=== PATIENT | male | born 1935 | race Caucasian/White ===

== ENCOUNTER 2016-09-27 03:16 | Emergency (ER) | payer MEDICARE, OTHER ==
[2016-09-27] MEDS ORDERED: XYLOCAINE 2% Uro-Jet TOP ONE (03:20)
--- NOTE | 2016-09-27 03:34 | ERPHSYRPT ---
- History of Present Illness Time Seen by Provider: 09/27/16 03:18 Source: patient Physician History: CC: urinary retention Hx: 81 y/o patient with hx of prostatism. He is unable to urinate tonite. Feels pressure and urgency. No fever, chills, vomiting. He is scheduled to see Dr Trotter this week in the office. Allergies/Adverse Reactions: Sulfa (Sulfonamide Antibiotics) Allergy (Mild, Verified 09/27/16 03:30) Itching adhesive tape Allergy (Verified 09/27/16 03:30) Home Medications: Furosemide [Lasix] 60 mg PO DAILY 03/11/14 [History] Potassium Chloride 20 Meq [Klor-Con 20 MEQ] 20 meq PO BID 03/11/14 [History] Amlodipine Besylate/Benazepril [Amlodipine-Benazepril 10-40 mg] 1 each PO DAILY 03/11/16 [History] Furosemide 40 mg [Lasix 40 MG] 60 mg PO DAILY 03/11/16 [History] Hydralazine HCl 10 mg PO BID 03/11/16 [History] Metoprolol Tartrate 50 mg [Lopressor 50 MG] 50 mg PO BID 03/11/16 [History ] Hx Tetanus, Diphtheria Vaccination/Date Given: Yes (unknown) Hx Influenza Vaccination/Date Given: No Hx Pneumococcal Vaccination/Date Given: No - Past Medical History Pertinent Past Medical History: Yes Neurological History: No Pertinent History ENT History: No Pertinent History Cardiac History: Hypertension Respiratory History: No Pertinent History Endocrine Medical History: No Pertinent History Musculoskeletal History: No Pertinent History GI Medical History: No Pertinent History History: Other Psycho-Social History: Anxiety Male Reproductive Disorders: Prostate Problems - Past Surgical History Past Surgical History: Yes Neuro Surgical History: No Pertinent History Cardiac: No Pertinent History Respiratory: No Pertinent History Gastrointestinal: Hernia Repair Genitourinary: No Pertinent History Musculoskeletal: No Pertinent History Male Surgical History: No Pertinent History Other Surgical History: steel removed from eye, left nipple gland removed - Social History Smoking Status: Former smoker Exposure to second hand smoke: No Drug Use: none Patient Lives Alone: No - Review of Systems Constitutional: No Fever, No Chills Abdominal/Gastrointestinal: No Nausea, No Vomiting Genitourinary Symptoms: Urinary Retention, No Hematuria Musculoskeletal: No Back Pain Skin: No Rash - Nursing Vital Signs Nursing Vital Signs: Initial Vital Signs Temperature 97.9 F Temperature Source Oral Pulse Rate 62 Respiratory Rate 16 Blood Pressure [Right Arm] 137/76 Pain Intensity 0 - Physical Exam General Appearance: alert Ears, Nose, Throat Exam: moist mucous membranes Respiratory Exam: normal breath sounds Cardiovascular Exam: regular rate/rhythm Gastrointestinal/Abdomen Exam: soft, No tenderness, No distention, No mass, No guarding Male Genital Exam: normal genitalia Extremity Exam: normal inspection, normal range of motion Neurologic Exam: alert, oriented x 3, cooperative, sensation nml, motor deficits Skin Exam: warm, dry, No rash Procedures - Additional Procedures Progress: 16 Fr mcclellan catheter placed using urojet lidocaine. Good return of urine. - Course Nursing assessment & vital signs reviewed: Yes Ordered Tests: Active Orders 24 hr Category Date Time Status Catheter-[place] Mcclellan STAT Care 09/27/16 03:19 Active BMP Stat Lab 09/27/16 03:37 Completed CBC W DIFF Stat Lab 09/27/16 03:37 Completed CULTURE,URINE Stat Lab 09/27/16 03:37 Received UA W/ MICROSCOPIC Stat Lab 09/27/16 03:37 Completed Medication Summary Discontinued Medications Generic Name Dose Route Start Last Admin Trade Name Freq PRN Reason Stop Dose Admin Lidocaine HCl 200 mg 09/27/16 03:20 09/27/16 03:36 Xylocaine 2% Uro-Jet TOP 09/27/16 03:21 200 mg STAT ONE Administration Lab/Rad Data: Laboratory Result [facility] 09/27/16 03:37 09/27/16 03:37 Laboratory Results 09/27/16 09/27/16 09/27/16 Range/Units 03:37 03:37 03:37 WBC 6.5 (4.0-10.5) K/mm3 RBC 5.35 (4.1-5.6) M/mm3 Hgb 15.9 (12.5-18.0) gm/dl Hct 47.8 (42-50) % MCV 89.3 (78-100) fl MCH 29.7 (26-32) pg MCHC 33.3 (32-36) g/dl RDW 14.8 H (11.5-14.0) % Plt Count 138 L (150-450) K/mm3 MPV 10.8 H (6-9.5) fl Gran % 72.2 H (36.0-66.0) % Lymphocytes % 15.7 L (24.0-44.0) % Monocytes % 10.5 (0.0-12.0) % Eosinophils % 1.4 (0.00-5.0) % Basophils % 0.2 (0.0-0.4) % Basophils # 0.01 (0-0.4) Sodium 145 (136-145) mEq/L Potassium 3.3 L (3.5-5.1) mEq/L Chloride 107 (98-107) mEq/L Carbon Dioxide 25.9 (21-32) mEq/L Anion Gap 14.9 (5-15) MEQ/L BUN 6 L (9-20) mg/dL Creatinine 0.84 (0.55-1.30) mg/dl Estimated GFR > 60 ML/MIN Glucose 121 H (70-110) MG/DL Calcium 9.2 (8.5-10.1) mg/dL Ur Collection Type CATH Urine Color YELLOW (YELLOW) Urine Appearance CLEAR (CLEAR) Urine pH 8.5 (5-6) Ur Specific [place] 1.015 (1.005-1.025) Urine Protein NEGATIVE (Negative) Urine Glucose (UA) NEGATIVE (NEGATIVE) mg/dL Urine Ketones NEGATIVE (NEGATIVE) Urine Nitrite NEGATIVE (NEGATIVE) Urine Bilirubin NEGATIVE (NEGATIVE) Urine Urobilinogen 0.2 (0-1) mg/dL Urine WBC (Auto) NEGATIVE (NEGATIVE) Urine RBC (Auto) TRACE-INTACT (0-5) Ramírez/ul Urine Microscopic RBC 0-2 (0-2) /HPF Urine Bacteria RARE (NEGATIVE) /HPF Specimen Received [id number] - Progress Progress Note: 09/27/16 04:23 650ml urine output. Will release to follow up with Dr Trotter. - Departure Time of Disposition: 04:23 Departure Disposition: Home Clinical Impression: Urinary retention Condition: Stable Critical Care Time: No Referrals: TIP JESUS [Primary Care Provider] - ANGÉLICA TROTTER [COURTESY STAFF] - Instructions: Urinary Retention in Men, Care for Your Mcclellan Catheter -- Male Additional Instructions: See Dr Trotter this week as scheduled. Wear catheter until you see Dr Trotter. Return for fever or problems.
[2016-09-27 03:35] VITALS: O2SAT 97
[2016-09-27 03:40] LABS: BASOPHIL % 0.2 % (0.0-0.4); Eosinophil % 1.4 % (0.00-5.0); Granulocytes % 72.2 % (36.0-66.0); Lymphocytes % 15.7 % (24.0-44.0); Mean Cell Volume 89.3 fl (78-100); Mean Corpuscular Hemoglobin 29.7 pg (26-32); Mean Platelet Volume 10.8 fl (6-9.5); Monocytes % 10.5 % (0.0-12.0); Platelet Count 138 K/mm3 (150-450); Red Blood Count 5.35 M/mm3 (4.1-5.6); Red Cell Distribution Width 14.8 % (11.5-14.0); White Blood Count 6.5 K/mm3 (4.0-10.5)
[2016-09-27 03:52] LABS: Collection Type CATH
[2016-09-27 03:53] LABS: Bacteria RARE /HPF (NEGATIVE); COMPLETE URINE MICROSCOPIC? YES; Ph 8.5 (5-6)
[2016-09-27 04:20] LABS: ANION GAP 14.9 MEQ/L (5-15); BLOOD UREA NITROGEN 6 mg/dL (9-20); CHLORIDE 107 mEq/L (98-107); Carbon Dioxide 25.9 mEq/L (21-32); Glucose 121 MG/DL (70-110); Potassium 3.3 mEq/L (3.5-5.1); SODIUM 145 mEq/L (136-145)
[2016-09-27 04:43] VITALS: BP 138/72; PULSE 69
== END 2016-09-27 04:43 | disposition home or self-care (01) ==
LOC: ED 03:16
DX: R33.9 Retention of urine, unspecified (principal); I10 Essential (primary) hypertension
CPT/HCPCS: 36415; 51702; 80048; 81000; 85025; 87086; 99284

== ENCOUNTER 2017-01-10 00:54 | Emergency (ER) | payer MEDICARE, OTHER ==
[2017-01-10] MEDS ORDERED: XYLOCAINE 2% Uro-Jet ONE (01:00)
--- NOTE | 2017-01-10 01:28 | ERPHSYRPT ---
- History of Present Illness Source: patient Exam Limitations: clinical condition Patient Subjective Stated Complaint: pt states he has been having trouble urinating today and has a lot of pain. Triage Nursing Assessment: pt awake and alert, answers questions approp. pt restless in bed. holding lower abd. respitations nonlabored with lungs cta. pt ambulatory with steady gait noted. distention noted to pelvic area and pt reports increased pain with palpation. +2 edema noted to bilat lower ext. Physician History: "Patient with progressive urinary retention yesterday into this morning with significant now lower abdominal/suprapubic pressure still unable to urinate. Patient appears history of same circumstances twice before necessitating placement of Crockett catheters. Patient has had urologic consultation in the past. No fever or chills. No hematuria. No recent suprapubic or genitourinary trauma. Timing/Duration: today, yesterday Activites at Onset: none Quality: fullness, pressure Pain Radiation: none Severity of Pain-Max: severe Severity of Pain-Current: none (AFTER CROCKETT) Modifying Factors: Improves With: urinating Associated Symptoms: other Sexual intercourse history: non-contributory Allergies/Adverse Reactions: Sulfa (Sulfonamide Antibiotics) Allergy (Mild, Verified 01/10/17 01:06) Itching adhesive tape Allergy (Verified 01/10/17 01:06) Home Medications: Furosemide [Lasix] 60 mg PO DAILY 03/11/14 [History] Potassium Chloride 20 Meq [Klor-Con 20 MEQ] 20 meq PO BID 03/11/14 [History] Amlodipine Besylate/Benazepril [Amlodipine-Benazepril 10-40 mg] 1 each PO DAILY 03/11/16 [History] Furosemide 40 mg [Lasix 40 MG] 60 mg PO DAILY 03/11/16 [History] Hydralazine HCl 10 mg PO BID 03/11/16 [History] Metoprolol Tartrate 50 mg [Lopressor 50 MG] 50 mg PO BID 03/11/16 [History ] Hx Tetanus, Diphtheria Vaccination/Date Given: Yes (unknown) Hx Influenza Vaccination/Date Given: No Hx Pneumococcal Vaccination/Date Given: No Immunizations Up to Date: Yes - Past Medical History Pertinent Past Medical History: Yes Neurological History: No Pertinent History ENT History: No Pertinent History Cardiac History: Hypertension Respiratory History: No Pertinent History Endocrine Medical History: No Pertinent History Musculoskeletal History: No Pertinent History GI Medical History: No Pertinent History History: Other Psycho-Social History: Anxiety Male Reproductive Disorders: Prostate Problems - Past Surgical History Past Surgical History: Yes Neuro Surgical History: No Pertinent History Cardiac: No Pertinent History Respiratory: No Pertinent History Gastrointestinal: Hernia Repair Genitourinary: No Pertinent History Musculoskeletal: No Pertinent History Male Surgical History: No Pertinent History Other Surgical History: steel removed from eye, left nipple gland removed - Social History Smoking Status: Former smoker Exposure to second hand smoke: No Drug Use: none Patient Lives Alone: No - Review of Systems Constitutional: No Symptoms Eyes: No Symptoms Ears, Nose, & Throat: No Symptoms Respiratory: No Cough, No Dyspnea Cardiac: No Chest Pain, No Edema, No Syncope Abdominal/Gastrointestinal: No Abdominal Pain, No Nausea, No Vomiting, No Diarrhea Genitourinary Symptoms: Other ( NOTED HPI) Musculoskeletal: No Symptoms Skin: No Symptoms Neurological: No Symptoms - Nursing Vital Signs Nursing Vital Signs: Initial Vital Signs Temperature 97.4 F 01/10/17 00:57 Pulse Rate 74 01/10/17 00:57 Respiratory Rate 22 01/10/17 00:57 Blood Pressure 177/102 01/10/17 00:57 O2 Sat by Pulse Oximetry 96 01/10/17 00:57 Pain Scale Pain Intensity 0 - Physical Exam General Appearance: moderate distress, obese Eye Exam: PERRL/EOMI Ears, Nose, Throat Exam: normal ENT inspection Neck Exam: normal inspection Respiratory Exam: normal breath sounds, chest tenderness Cardiovascular Exam: regular rate/rhythm, normal heart sounds, normal peripheral pulses, capillary refill <2 sec Gastrointestinal/Abdomen Exam: soft, other (SUPRAPUBIC TENDERNESS PRE-Crockett CATHETER PLACEMENT) Rectal Exam: deferred Male Genital Exam: normal genitalia Back Exam: normal inspection, normal range of motion Extremity Exam: normal inspection, normal range of motion, pelvis stable, swelling (MILD,CHRONIC PER PT.), No amputations, No calf tenderness, No deformities Neurologic Exam: alert, oriented x 3, cooperative, communications designer II-XII nml as tested Skin Exam: normal color, warm, dry, No rash Lymphatic Exam: No adenopathy SpO2 Interpretation: normal SpO2: 96 Oxygen Delivery: Room Air - Course Nursing assessment & vital signs reviewed: Yes Ordered Tests: Active Orders 24 hr Category Date Time Status Catheter-[place] Crockett STAT Care 01/10/17 01:09 Active CBC W DIFF Stat Lab 01/10/17 02:01 Completed CMP Stat Lab 01/10/17 02:01 Completed UA W/ MICROSCOPIC Stat Lab 01/10/17 02:09 Completed Medication Summary Discontinued Medications Generic Name Dose Route Start Last Admin Trade Name Jeremias PRN Reason Stop Dose Admin Cephalexin HCl 500 mg 01/10/17 02:57 01/10/17 03:02 Keflex 500 Mg PO 01/10/17 02:58 500 mg STAT ONE Administration Cephalexin HCl Confirm 01/10/17 03:01 Keflex 500 Mg Administered 01/10/17 03:02 Dose 500 mg .ROUTE .STK-MED ONE Lidocaine HCl Confirm 01/10/17 01:00 Xylocaine 2% Uro-Jet Administered 01/10/17 01:01 Dose 200 mg .ROUTE .STK-MED ONE Lab/Rad Data: Laboratory Result Diagrams 01/10/17 02:01 01/10/17 02:01 Laboratory Results 01/10/17 01/10/17 01/10/17 Range/Units 02:09 02:01 02:01 WBC 8.4 (4.0-10.5) K/mm3 RBC 4.72 (4.1-5.6) M/mm3 Hgb 14.2 (12.5-18.0) gm/dl Hct 43.7 (42-50) % MCV 92.6 (78-100) fl MCH 30.1 (26-32) pg MCHC 32.5 (32-36) g/dl RDW 14.1 H (11.5-14.0) % Plt Count 146 L (150-450) K/mm3 MPV 10.8 H (6-9.5) fl Gran % 76.8 H (36.0-66.0) % Lymphocytes % 13.4 L (24.0-44.0) % Monocytes % 7.0 (0.0-12.0) % Eosinophils % 2.6 (0.00-5.0) % Basophils % 0.2 (0.0-0.4) % Basophils # 0.02 (0-0.4) Sodium 144 (136-145) mEq/L Potassium 3.6 (3.5-5.1) mEq/L Chloride 108 H (98-107) mEq/L Carbon Dioxide 29.5 (21-32) mEq/L Anion Gap 10.2 (5-15) MEQ/L BUN 13 (9-20) mg/dL Creatinine 0.90 (0.55-1.30) mg/dl Estimated GFR > 60 ML/MIN Glucose 97 (70-110) MG/DL Calcium 8.9 (8.5-10.1) mg/dL Total Bilirubin 0.70 (0.2-1.0) mg/dL AST 16 (15-37) U/L ALT 10 L (12-78) U/L Alkaline Phosphatase 94 (46-116) U/L Serum Total Protein 6.4 (6.4-8.2) gm/dL Albumin 3.2 L (3.4-5.0) g/dL Ur Collection Type CLEAN CATCH Urine Color YELLOW (YELLOW) Urine Appearance CLEAR (CLEAR) Urine pH 6.0 (5-6) Ur Specific [place] 1.010 (1.005-1.025) Urine Protein NEGATIVE (Negative) Urine Ketones NEGATIVE (NEGATIVE) Urine Blood 50 (0-5) Ramírez/ul Urine Nitrite NEGATIVE (NEGATIVE) Urine Bilirubin NEGATIVE (NEGATIVE) Urine Urobilinogen NORMAL (0-1) mg/dL Ur Leukocyte Esterase NEGATIVE (NEGATIVE) Urine Microscopic RBC 10-15 (0-2) /HPF Urine Bacteria RARE (NEGATIVE) /HPF Urine Glucose NEGATIVE (NEGATIVE) mg/dL Specimen Received [id number] - Progress Progress: improved, re-examined Progress Note: 01/10/17 02:59Patient markedly improved after Crockett catheter placement no further discomfort. Good urine flow via catheter. Lab urinalysis negative. We 'll place on Keflex to prevent urinary tract infection and have patient follow- up medical provider next 2-3 days. See discharge diagnosis and instructions. Counseled pt/family regarding: lab results, diagnosis, need for follow-up - Departure Time of Disposition: 03:00 Departure Disposition: Home Clinical Impression: Urinary retention Condition: Stable Critical Care Time: No Referrals: TIP JESUS [Primary Care Provider] - 01/12/17 Instructions: Care for Your Crockett Catheter -- Male Additional Instructions: Follow for catheter instructions. Start antibiotic prescription tomorrow and follow up with Dr. Jesus in the office on for recheck. Return to ER for fever or chills severe pain or any significant concerns or issues. Prescriptions: Cephalexin [Keflex] 500 mg PO TID #20 capsule
[2017-01-10 02:04] LABS: BASOPHIL % 0.2 % (0.0-0.4); Eosinophil % 2.6 % (0.00-5.0); Granulocytes % 76.8 % (36.0-66.0); Lymphocytes % 13.4 % (24.0-44.0); Mean Cell Volume 92.6 fl (78-100); Mean Corpuscular Hemoglobin 30.1 pg (26-32); Mean Platelet Volume 10.8 fl (6-9.5); Platelet Count 146 K/mm3 (150-450); Red Blood Count 4.72 M/mm3 (4.1-5.6); Red Cell Distribution Width 14.1 % (11.5-14.0); White Blood Count 8.4 K/mm3 (4.0-10.5)
[2017-01-10 02:48] LABS: ALBUMIN 3.2 g/dL (3.4-5.0); ALKALINE PHOSPHATASE 94 U/L (46-116); ANION GAP 10.2 MEQ/L (5-15); BLOOD UREA NITROGEN 13 mg/dL (9-20); CHLORIDE 108 mEq/L (98-107); Carbon Dioxide 29.5 mEq/L (21-32); Glucose 97 MG/DL (70-110); Potassium 3.6 mEq/L (3.5-5.1); SGOT/AST 16 U/L (15-37); SGPT/ALT 10 U/L (12-78); SODIUM 144 mEq/L (136-145); Total Protein 6.4 gm/dL (6.4-8.2)
[2017-01-10 02:53] LABS: ADD URINE CULTURE? NO (NO); Bacteria RARE /HPF (NEGATIVE); Bilirubin NEGATIVE (NEGATIVE); Blood 50 Ery/ul (0-5); COMPLETE URINE MICROSCOPIC? YES; Collection Type CLEAN CATCH; Glucose NEGATIVE (NEGATIVE); Leukocyte Esterase NEGATIVE (NEGATIVE)
[2017-01-10] MEDS ORDERED: KEFLEX 500 MG PO ONE (02:57)
[2017-01-10] MEDS ORDERED: KEFLEX 500 MG ONE (03:01)
[2017-01-10 03:34] VITALS: BP 159/77; PULSE 78
[2017-01-10 04:22] VITALS: O2SAT 96
== END 2017-01-10 03:35 | disposition home or self-care (01) ==
LOC: ED 00:54
DX: R33.9 Retention of urine, unspecified (principal); R10.30 Lower abdominal pain, unspecified; R10.9 Unspecified abdominal pain; Z79.899 Other long term (current) drug therapy; I10 Essential (primary) hypertension; F41.9 Anxiety disorder, unspecified
CPT/HCPCS: 36415; 51702; 80053; 81000; 85025; 99283; 99284; A9270-GY

== ENCOUNTER 2017-02-26 08:11 | Emergency (ER) | payer MEDICARE, OTHER ==
--- NOTE | 2017-02-26 08:49 | ERPHSYRPT ---
- History of Present Illness Time Seen by Provider: 02/26/17 08:30 Patient Subjective Stated Complaint: unable to void this am Triage Nursing Assessment: skin w/d, color normal. denies any other c/o except for urinary retention. saw dr vyas one month ago for same c/o. Physician History: PATIENT WITH A HISTORY OF LONGSTANDING URINARY RETENTION SINCE NOVEMBER 2013 COMPLAINS OF INABILITY TO VOID SINCE LAST NIGHT. PATIENT COMPLAINS OF ABDOMINAL DISCOMFORT, PRESSURE DISCOMFORT. DENIES NAUSEA, EMESIS, FLANK PAIN, FREQUENCY, URGENCY OR DYSURIA. Timing/Duration: yesterday Activites at Onset: none Quality: fullness, pressure Onset Location: suprapubic Severity of Pain-Max: severe Modifying Factors: Improves With: movement Associated Symptoms: other (UNABLE TO VOID) Sexual intercourse history: non-contributory Allergies/Adverse Reactions: Sulfa (Sulfonamide Antibiotics) Allergy (Mild, Verified 02/26/17 08:23) Itching adhesive tape Allergy (Verified 02/26/17 08:23) Home Medications: Furosemide [Lasix] 60 mg PO DAILY 03/11/14 [History] Potassium Chloride 20 Meq [Klor-Con 20 MEQ] 20 meq PO BID 03/11/14 [History] Amlodipine Besylate/Benazepril [Amlodipine-Benazepril 10-40 mg] 1 each PO DAILY 03/11/16 [History] Metoprolol Tartrate 50 mg [Lopressor 50 MG] 50 mg PO BID 03/11/16 [History ] Finasteride 5 mg [Proscar 5 MG] 5 mg PO DAILY 02/26/17 [History] Tamsulosin HCl 0.4 mg [Flomax 0.4 MG] 0.4 mg PO HS 02/26/17 [History] Hx Tetanus, Diphtheria Vaccination/Date Given: No (unknown) Hx Influenza Vaccination/Date Given: No Hx Pneumococcal Vaccination/Date Given: No - Past Medical History Pertinent Past Medical History: Yes Neurological History: No Pertinent History ENT History: No Pertinent History Cardiac History: Hypertension Respiratory History: No Pertinent History Endocrine Medical History: No Pertinent History Musculoskeletal History: No Pertinent History GI Medical History: No Pertinent History History: Other Psycho-Social History: Anxiety Male Reproductive Disorders: Prostate Problems - Past Surgical History Past Surgical History: Yes Neuro Surgical History: No Pertinent History Cardiac: No Pertinent History Respiratory: No Pertinent History Gastrointestinal: Hernia Repair Genitourinary: No Pertinent History Musculoskeletal: No Pertinent History Male Surgical History: No Pertinent History Other Surgical History: steel removed from eye, left nipple gland removed - Social History Smoking Status: Former smoker Exposure to second hand smoke: No Drug Use: none Patient Lives Alone: No - Review of Systems Constitutional: No Fever, No Chills Eyes: No Symptoms Ears, Nose, & Throat: No Symptoms Respiratory: No Cough, No Dyspnea Cardiac: No Chest Pain, No Edema, No Syncope Abdominal/Gastrointestinal: Abdominal Pain, No Nausea, No Vomiting, No Diarrhea Genitourinary Symptoms: No Symptoms, No Dysuria Musculoskeletal: No Symptoms, No Back Pain, No Neck Pain Skin: No Symptoms, No Rash Neurological: No Dizziness, No Focal Weakness, No Sensory Changes Psychological: No Symptoms Endocrine: No Symptoms All Other Systems: Reviewed and Negative - Nursing Vital Signs Nursing Vital Signs: Initial Vital Signs Temperature 97.8 F 02/26/17 08:15 Pulse Rate 92 H 02/26/17 08:15 Respiratory Rate 16 02/26/17 08:15 Blood Pressure 176/84 02/26/17 08:15 O2 Sat by Pulse Oximetry 97 02/26/17 08:15 Pain Scale Pain Intensity 2 - Physical Exam General Appearance: no apparent distress, alert Eye Exam: PERRL/EOMI Ears, Nose, Throat Exam: pharynx normal, moist mucous membranes Neck Exam: normal inspection, supple Respiratory Exam: normal breath sounds, lungs clear Cardiovascular Exam: regular rate/rhythm, No edema Gastrointestinal/Abdomen Exam: soft, normal bowel sounds, distention (2FB ABOVE UMBILICUS, ), No tenderness Male Genital Exam: normal genitalia Back Exam: normal inspection (NO CVA TENDERNESS), No CVA tenderness Extremity Exam: normal inspection, normal range of motion, No pedal edema Neurologic Exam: alert, oriented x 3, cooperative, sensation nml, No motor deficits Skin Exam: normal color, warm, dry, No rash SpO2 Interpretation: normal SpO2: 97 Oxygen Delivery: Room Air Ordered Tests: Active Orders 24 hr Category Date Time Status Catheter-[place] Crockett STAT Care 02/26/17 08:32 Active UA W/ MICROSCOPIC Stat Lab 02/26/17 08:33 Completed Lab/Rad Data: Laboratory Results 02/26/17 Range/Units 08:33 Ur Collection Type VOID Urine Color YELLOW (YELLOW) Urine Appearance CLEAR (CLEAR) Urine pH 8.0 (5-6) Ur Specific [place] 1.010 (1.005-1.025) Urine Protein NEGATIVE (Negative) Urine Ketones NEGATIVE (NEGATIVE) Urine Blood 50 (0-5) Ramírez/ul Urine Nitrite NEGATIVE (NEGATIVE) Urine Bilirubin NEGATIVE (NEGATIVE) Urine Urobilinogen NORMAL (0-1) mg/dL Ur Leukocyte Esterase NEGATIVE (NEGATIVE) Urine Microscopic RBC 2-5 (0-2) /HPF Ur Epithelial Cells FEW (FEW) /HPF Urine Glucose NEGATIVE (NEGATIVE) mg/dL Specimen Received 02/26/2017 0845 - Progress Progress: improved Progress Note: 02/26/17 09:23 CROCKETT CATH INSERTION 600ML URINE OUTPUT Counseled pt/family regarding: lab results, diagnosis - Departure Time of Disposition: 09:30 Departure Disposition: Home Clinical Impression: ACUTE URINARY RETENTION Condition: Stable Critical Care Time: No Additional Instructions: CALL DR VYAS TOMORROW TO SCHEDULE APPOINTMENT AND YOUR FAMILY PHYSICIAN FOR REMOVAL OF CROCKETT CATHETER IN 3-4 DAYS. RETURN TO EMERGENCY FOR ABDOMINAL PAIN OR INABILITY TO URINATE.;
[2017-02-26 09:07] LABS: Collection Type VOID; Glucose NEGATIVE (NEGATIVE); Leukocyte Esterase NEGATIVE (NEGATIVE)
[2017-02-26 09:08] LABS: ADD URINE CULTURE? NO (NO); Bilirubin NEGATIVE (NEGATIVE); Blood 50 Ery/ul (0-5); COMPLETE URINE MICROSCOPIC? YES; Epithelial Cells FEW /HPF (FEW)
[2017-02-26 09:47] VITALS: BP 186/100; PULSE 62; O2SAT 94
== END 2017-02-26 09:47 | disposition home or self-care (01) ==
LOC: ED 08:11
DX: R33.9 Retention of urine, unspecified (principal)
CPT/HCPCS: 99283; 51702; 81000; P9612

== ENCOUNTER 2017-05-16 02:16 | Emergency (ER) | payer MEDICARE, OTHER ==
[2017-05-16 02:29] VITALS: O2SAT 94
--- NOTE | 2017-05-16 02:43 | ERPHSYRPT ---
- History of Present Illness Time Seen by Provider: 05/16/17 02:34 Source: patient Exam Limitations: no limitations Patient Subjective Stated Complaint: Pt reports urinary retention since yesterday. Has hx of this in the past and has had to be catheterized for this for relief. Triage Nursing Assessment: Pt alert, oriented, answers all questions appropriately. Ambulatory to tx room, steady gait noted. Skin pink, warm, dry. Resps non-labored. Physician History: Pt is c/o no urinary output since yesterday evening, denies recent surgery, trauma, no severe pain, fever or vomiting. He has been having this problem, had Singer catheter in the past for same problem, denies any surgeries. Timing/Duration: yesterday Activites at Onset: none Quality: aching Onset Location: suprapubic Pain Radiation: none Severity of Pain-Max: mild Severity of Pain-Current: none Modifying Factors: Improves With: nothing Associated Symptoms: denies symptoms Prior abdominal problems: similar symptoms Sexual intercourse history: non-contributory Allergies/Adverse Reactions: Sulfa (Sulfonamide Antibiotics) Allergy (Mild, Verified 05/16/17 02:32) Itching adhesive tape Allergy (Verified 05/16/17 02:32) Home Medications: Furosemide [Lasix] 60 mg PO DAILY 03/11/14 [History] Potassium Chloride 20 Meq [Klor-Con 20 MEQ] 20 meq PO BID 03/11/14 [History] Amlodipine Besylate/Benazepril [Amlodipine-Benazepril 10-40 mg] 1 each PO DAILY 03/11/16 [History] Metoprolol Tartrate 50 mg [Lopressor 50 MG] 50 mg PO BID 03/11/16 [History ] Finasteride 5 mg [Proscar 5 MG] 5 mg PO DAILY 02/26/17 [History] Tamsulosin HCl 0.4 mg [Flomax 0.4 MG] 0.4 mg PO HS 02/26/17 [History] Hx Tetanus, Diphtheria Vaccination/Date Given: No (unknown) Hx Influenza Vaccination/Date Given: No Hx Pneumococcal Vaccination/Date Given: No Immunizations Up to Date: Yes - Past Medical History Pertinent Past Medical History: Yes Neurological History: No Pertinent History ENT History: No Pertinent History Cardiac History: Hypertension Respiratory History: No Pertinent History Endocrine Medical History: No Pertinent History Musculoskeletal History: No Pertinent History GI Medical History: No Pertinent History History: Other Psycho-Social History: Anxiety Male Reproductive Disorders: Prostate Problems - Past Surgical History Past Surgical History: Yes Neuro Surgical History: No Pertinent History Cardiac: No Pertinent History Respiratory: No Pertinent History Gastrointestinal: Hernia Repair Genitourinary: No Pertinent History Musculoskeletal: No Pertinent History Male Surgical History: No Pertinent History Other Surgical History: steel removed from eye, left nipple gland removed - Social History Smoking Status: Never smoker Exposure to second hand smoke: No Drug Use: none Patient Lives Alone: No - Review of Systems Constitutional: No Symptoms Genitourinary Symptoms: Hesitancy All Other Systems: Reviewed and Negative - Nursing Vital Signs Nursing Vital Signs: Initial Vital Signs Temperature 97.4 F 05/16/17 02:26 Pulse Rate 120 H 05/16/17 02:26 Respiratory Rate 20 05/16/17 02:26 Blood Pressure 161/120 05/16/17 02:26 O2 Sat by Pulse Oximetry 94 L 05/16/17 02:26 Pain Scale Pain Intensity 8 - Physical Exam General Appearance: no apparent distress Ears, Nose, Throat Exam: normal ENT inspection Neck Exam: normal inspection, non-tender Respiratory Exam: normal breath sounds, lungs clear Cardiovascular Exam: normal heart sounds, normal peripheral pulses, tachycardia , No murmur Gastrointestinal/Abdomen Exam: soft, normal bowel sounds, tenderness (mild, suprapubic) Male Genital Exam: normal genitalia Back Exam: normal inspection, No CVA tenderness Extremity Exam: other (2 + ankle edema bilaterally) Skin Exam: normal color, warm, dry SpO2 Interpretation: normal SpO2: 94 Oxygen Delivery: Room Air - Course Nursing assessment & vital signs reviewed: Yes Ordered Tests: Active Orders 24 hr Category Date Time Status Catheter-[place] Singer STAT Care 05/16/17 02:35 Active UA W/ MICROSCOPIC Stat Lab 05/16/17 02:50 Completed Lab/Rad Data: Laboratory Results 05/16/17 Range/Units 02:50 Ur Collection Type CLEAN CATCH Urine Color YELLOW (YELLOW) Urine Appearance CLEAR (CLEAR) Urine pH 7.0 (5-6) Ur Specific [place] 1.005 (1.005-1.025) Urine Protein NEGATIVE (Negative) Urine Ketones NEGATIVE (NEGATIVE) Urine Blood 50 (0-5) Ramírez/ul Urine Nitrite NEGATIVE (NEGATIVE) Urine Bilirubin NEGATIVE (NEGATIVE) Urine Urobilinogen NORMAL (0-1) mg/dL Ur Leukocyte Esterase NEGATIVE (NEGATIVE) Urine Microscopic RBC 10-15 (0-2) /HPF Urine Bacteria RARE (NEGATIVE) /HPF Urine Mucus SLIGHT (NEGATIVE) /HPF Urine Culture Reflexed NO (NO) Urine Glucose NEGATIVE (NEGATIVE) mg/dL Specimen Received [id number] - Progress Progress: improved Progress Note: 05/16/17 03:13 Singer catheter inserted by nurse, m600 ml clear urine drained, pt relieved, he is afebrile, no severe pain or distress.He has appointment with his doctor in 2 days, encouraged him to keep it and return if severe pain, fever> 102 F. - Departure Time of Disposition: 03:14 Departure Disposition: Home Clinical Impression: Urinary retention Condition: Good Critical Care Time: No Referrals: Provider,Unknown [NON-STAFF PHY W/O PRIVILEGES] - Instructions: Urinary Retention in Men Additional Instructions: Rest x 2-3 days, drink plenty of fluids, follow up with your doctor as scheduled in 2 days, return if severe pain, bleeding or fever> 102 F!
[2017-05-16 02:57] LABS: ADD URINE CULTURE? NO (NO); Bacteria RARE /HPF (NEGATIVE); Bilirubin NEGATIVE (NEGATIVE); Blood 50 Ery/ul (0-5); COMPLETE URINE MICROSCOPIC? YES; Collection Type CLEAN CATCH; Glucose NEGATIVE (NEGATIVE); Leukocyte Esterase NEGATIVE (NEGATIVE); Mucus SLIGHT /HPF (NEGATIVE)
[2017-05-16 03:32] VITALS: BP 128/77; PULSE 96
== END 2017-05-16 03:35 | disposition home or self-care (01) ==
LOC: ED 02:16
DX: R33.9 Retention of urine, unspecified (principal); Z79.899 Other long term (current) drug therapy; I10 Essential (primary) hypertension
CPT/HCPCS: 51702; 81000; 99283

== ENCOUNTER 2017-07-26 03:22 | Emergency (ER) | payer MEDICARE, OTHER ==
[2017-07-26 03:41] VITALS: O2SAT 95
--- NOTE | 2017-07-26 03:53 | ERPHSYRPT ---
- History of Present Illness Time Seen by Provider: 07/26/17 03:40 Source: patient Exam Limitations: no limitations Patient Subjective Stated Complaint: woke up feeling urge to urinate at 0200 and has been unable to go since Triage Nursing Assessment: c/o abd pain, urinary urgency Physician History: 82 y/o male with history of BPH comes to the ER with complaints of urinary retention and abdominal pressure that started this morning. The last time pt urinated was last night before going to bed. Pt denies any fever, chills, nausea , vomiting, hematuria or dysuria. Pt has had issues with urinary retention in the past and has been seeing Dr Royal for urology. Timing/Duration: today Activites at Onset: none Quality: aching Severity of Pain-Max: mild Severity of Pain-Current: mild Associated Symptoms: denies symptoms Prior abdominal problems: none Allergies/Adverse Reactions: Sulfa (Sulfonamide Antibiotics) Allergy (Mild, Verified 05/16/17 02:32) Itching adhesive tape Allergy (Verified 05/16/17 02:32) Home Medications: Furosemide [Lasix] 60 mg PO DAILY 03/11/14 [History] Potassium Chloride 20 Meq [Klor-Con 20 MEQ] 20 meq PO BID 03/11/14 [History] Amlodipine Besylate/Benazepril [Amlodipine-Benazepril 10-40 mg] 1 each PO DAILY 03/11/16 [History] Metoprolol Tartrate 50 mg [Lopressor 50 MG] 50 mg PO BID 03/11/16 [History ] Finasteride 5 mg [Proscar 5 MG] 5 mg PO DAILY 02/26/17 [History] Tamsulosin HCl 0.4 mg [Flomax 0.4 MG] 0.4 mg PO HS 02/26/17 [History] Hx Tetanus, Diphtheria Vaccination/Date Given: Yes Hx Influenza Vaccination/Date Given: No Hx Pneumococcal Vaccination/Date Given: No Immunizations Up to Date: Yes - Past Medical History Pertinent Past Medical History: Yes Neurological History: No Pertinent History ENT History: No Pertinent History Cardiac History: Hypertension Respiratory History: No Pertinent History Endocrine Medical History: No Pertinent History Musculoskeletal History: No Pertinent History GI Medical History: No Pertinent History History: Other Psycho-Social History: Anxiety Male Reproductive Disorders: Prostate Problems - Past Surgical History Past Surgical History: Yes Neuro Surgical History: No Pertinent History Cardiac: No Pertinent History Respiratory: No Pertinent History Gastrointestinal: Hernia Repair Genitourinary: No Pertinent History Musculoskeletal: No Pertinent History Male Surgical History: No Pertinent History Other Surgical History: steel removed from eye, left nipple gland removed - Social History Smoking Status: Never smoker Exposure to second hand smoke: No Drug Use: none Patient Lives Alone: No - Review of Systems Constitutional: No Fever, No Chills Eyes: No Symptoms Ears, Nose, & Throat: No Symptoms Respiratory: No Cough, No Dyspnea Cardiac: No Chest Pain, No Edema, No Syncope Abdominal/Gastrointestinal: No Abdominal Pain, No Nausea, No Vomiting, No Diarrhea Genitourinary Symptoms: Hesitancy, Urgency, Urinary Retention, No Dysuria, No Frequency, No Hematuria, No Flank Pain Musculoskeletal: No Back Pain, No Neck Pain Skin: No Rash Neurological: No Dizziness, No Focal Weakness, No Sensory Changes Psychological: No Symptoms Endocrine: No Symptoms All Other Systems: Reviewed and Negative - Nursing Vital Signs Nursing Vital Signs: Initial Vital Signs Temperature 97.4 F 07/26/17 03:39 Pulse Rate 56 L 07/26/17 03:39 Respiratory Rate 20 07/26/17 03:39 Blood Pressure 182/129 07/26/17 03:39 O2 Sat by Pulse Oximetry 95 07/26/17 03:39 Pain Scale Pain Intensity 0 - Physical Exam General Appearance: no apparent distress, alert Eye Exam: PERRL/EOMI Ears, Nose, Throat Exam: pharynx normal, moist mucous membranes Neck Exam: normal inspection, supple Respiratory Exam: normal breath sounds, lungs clear Cardiovascular Exam: regular rate/rhythm, normal heart sounds, normal peripheral pulses, No edema Gastrointestinal/Abdomen Exam: soft, normal bowel sounds, No tenderness Back Exam: normal inspection, No CVA tenderness Extremity Exam: normal inspection, normal range of motion, No pedal edema Neurologic Exam: alert, oriented x 3, cooperative, sensation nml, No motor deficits Skin Exam: normal color, warm, dry, No rash SpO2: 95 Oxygen Delivery: Room Air - Course Nursing assessment & vital signs reviewed: Yes Ordered Tests: Active Orders 24 hr Category Date Time Status Mcclellan [Catheter-[place] Mcclellan] STAT Care 07/26/17 03:49 Active CULTURE,URINE Stat Lab 07/26/17 03:56 Received UA W/ MICROSCOPIC Stat Lab 07/26/17 03:56 Completed Medication Summary Discontinued Medications Generic Name Dose Route Start Last Admin Trade Name Jeremias PRN Reason Stop Dose Admin Nitrofurantoin Macrocrystals 100 mg 07/26/17 04:11 Macrobid 100mg Capsule PO 07/26/17 04:12 STAT ONE Lab/Rad Data: Laboratory Results 07/26/17 Range/Units 03:56 Ur Collection Type CATH Urine Color YELLOW (YELLOW) Urine Appearance HAZY (CLEAR) Urine pH 6.0 (5-6) Ur Specific [place] 1.010 (1.005-1.025) Urine Protein NEGATIVE (Negative) Urine Ketones NEGATIVE (NEGATIVE) Urine Blood 250 (0-5) Ramírez/ul Urine Nitrite POSITIVE (NEGATIVE) Urine Bilirubin NEGATIVE (NEGATIVE) Urine Urobilinogen NORMAL (0-1) mg/dL Ur Leukocyte Esterase 2+ (NEGATIVE) Urine Microscopic RBC 15-25 (0-2) /HPF Urine Microscopic WBC 2-5 (0-5) /HPF Urine Bacteria MANY (NEGATIVE) /HPF Urine Mucus SLIGHT (NEGATIVE) /HPF Urine Culture Reflexed YES (NO) Urine Glucose NEGATIVE (NEGATIVE) mg/dL Specimen Received 07/26/17 0350 - Progress Progress: improved Progress Note: 07/26/17 04:14 Pt was able to urinate 800 cc into the mcclellan bag. Pt has a UTI and will be started on macrobid. Pt will F/U with Dr Trotter, urology this week. - Departure Time of Disposition: 04:15 Departure Disposition: Home Clinical Impression: Urinary retention Condition: Stable Critical Care Time: No Referrals: DOCTOR,NO FAMILY [Primary Care Provider] - ANGÉLICA TROTTER [COURTESY STAFF] - Instructions: Urinary Retention (DC) Additional Instructions: Follow up with Dr Trotter this week. Finish antibiotics until completion. Prescriptions: Nitrofurantoin Monohyd/M-Cryst [Macrobid 100 mg Capsule] 100 mg PO BID #13 capsule
[2017-07-26 04:03] VITALS: BP 117/57; PULSE 45
[2017-07-26 04:09] LABS: Appearance HAZY (CLEAR)
[2017-07-26 04:10] LABS: Bacteria MANY /HPF (NEGATIVE); Bilirubin NEGATIVE (NEGATIVE); Blood 250 Ery/ul (0-5); Glucose NEGATIVE (NEGATIVE); Ketones NEGATIVE (NEGATIVE); Leukocyte Esterase 2+ (NEGATIVE); Mucus SLIGHT /HPF (NEGATIVE); Nitrite POSITIVE (NEGATIVE); Protein,Urine Dip NEGATIVE (Negative); Urobilinogen NORMAL mg/dL (0-1)
[2017-07-26] MEDS ORDERED: Macrobid 100MG Capsule PO ONE (04:11)
[2017-07-26] MEDS ORDERED: Macrobid 100MG Capsule ONE (04:14)
== END 2017-07-26 04:33 | disposition home or self-care (01) ==
LOC: ED 03:22
DX: R33.9 Retention of urine, unspecified (principal); N39.0 Urinary tract infection, site not specified; Z79.899 Other long term (current) drug therapy
CPT/HCPCS: 51702; 81000; 87077; 87086; 87186; 99283; A9270-GY

== ENCOUNTER 2017-11-25 03:53 | Emergency (ER) | payer MEDICARE, BC ==
[2017-11-25 04:11] VITALS: PULSE 60
--- NOTE | 2017-11-25 04:39 | ERPHSYRPT ---
- History of Present Illness Time Seen by Provider: 11/25/17 04:29 Source: patient Exam Limitations: no limitations Patient Subjective Stated Complaint: pt is alert and oriented. pt is ambulatory. pt had a prostate resection and catheter put in on 11/21/17 and the catheter has been leaking urine on and off since then. pt states that there is some pink in his urine. pt denies any pain. Triage Nursing Assessment: see above Physician History: The patient is an 82-year-old male with his son status post TURP on 11/21/17 complaining that he has urine leaking from around the catheter. He is a difficult historian at times. He has changed the leg bag several times. He called his urologist yoseph and was told to come to the ER to irrigate the catheter. He has some uncomfortable feeling in the suprapubic region. His past medical history is significant for BPH, TURP, and hypertension. Timing/Duration: today Activites at Onset: none Quality: aching, fullness Onset Location: suprapubic, other (leaking catheter) Pain Radiation: none Severity of Pain-Max: moderate Severity of Pain-Current: moderate Modifying Factors: Improves With: nothing Associated Symptoms: other (leaking urine around catheter.) Prior abdominal problems: none Allergies/Adverse Reactions: Sulfa (Sulfonamide Antibiotics) Allergy (Mild, Verified 05/16/17 02:32) Itching adhesive tape Allergy (Verified 05/16/17 02:32) Home Medications: Furosemide [Lasix] 60 mg PO DAILY 03/11/14 [History] Potassium Chloride 20 Meq [Klor-Con 20 MEQ] 20 meq PO BID 03/11/14 [History] Amlodipine Besylate/Benazepril [Amlodipine-Benazepril 10-40 mg] 1 each PO DAILY 03/11/16 [History] Metoprolol Tartrate 50 mg [Lopressor 50 MG] 50 mg PO BID 03/11/16 [History ] Finasteride 5 mg [Proscar 5 MG] 5 mg PO DAILY 02/26/17 [History] Tamsulosin HCl 0.4 mg [Flomax 0.4 MG] 0.4 mg PO HS 02/26/17 [History] Hx Tetanus, Diphtheria Vaccination/Date Given: Yes Hx Influenza Vaccination/Date Given: No Hx Pneumococcal Vaccination/Date Given: No Immunizations Up to Date: Yes - Past Medical History Pertinent Past Medical History: Yes Neurological History: No Pertinent History ENT History: No Pertinent History Cardiac History: Hypertension Respiratory History: No Pertinent History Endocrine Medical History: No Pertinent History Musculoskeletal History: No Pertinent History GI Medical History: No Pertinent History History: Other Psycho-Social History: No Pertinent History Male Reproductive Disorders: Prostate Problems - Past Surgical History Past Surgical History: Yes Neuro Surgical History: No Pertinent History Cardiac: No Pertinent History Respiratory: No Pertinent History Gastrointestinal: Hernia Repair Genitourinary: No Pertinent History Musculoskeletal: No Pertinent History Male Surgical History: Prostate Surgery Other Surgical History: steel removed from eye, left nipple gland removed, prostate resection - Social History Smoking Status: Former smoker Exposure to second hand smoke: No Drug Use: none Patient Lives Alone: No - Review of Systems Constitutional: No Fever, No Chills Eyes: No Symptoms Ears, Nose, & Throat: No Symptoms Respiratory: No Cough, No Dyspnea Cardiac: No Chest Pain, No Edema, No Syncope Abdominal/Gastrointestinal: Abdominal Pain Genitourinary Symptoms: Urinary Retention Musculoskeletal: No Back Pain, No Neck Pain Skin: No Rash Neurological: No Dizziness, No Focal Weakness, No Sensory Changes Psychological: No Symptoms Endocrine: No Symptoms Hematologic/Lymphatic: No Symptoms Immunological/Allergic: No Symptoms All Other Systems: Reviewed and Negative - Nursing Vital Signs Nursing Vital Signs: Initial Vital Signs Temperature 97.9 F 11/25/17 03:54 Pulse Rate 60 11/25/17 03:54 Respiratory Rate 16 11/25/17 03:54 Blood Pressure 165/79 11/25/17 03:54 O2 Sat by Pulse Oximetry 95 11/25/17 03:54 Pain Scale Pain Intensity 0 - Physical Exam General Appearance: mild distress Eye Exam: PERRL/EOMI Ears, Nose, Throat Exam: pharynx normal, moist mucous membranes Neck Exam: normal inspection, supple Respiratory Exam: normal breath sounds, lungs clear Cardiovascular Exam: regular rate/rhythm, No edema Gastrointestinal/Abdomen Exam: tenderness (mild tenderness at suprapubic area.) Rectal Exam: not done Male Genital Exam: normal genitalia, uncircumcised Back Exam: normal inspection, No CVA tenderness Extremity Exam: normal inspection, normal range of motion, No pedal edema Neurologic Exam: alert, oriented x 3, cooperative, sensation nml, No motor deficits Skin Exam: normal color, warm, dry, No rash SpO2 Interpretation: normal SpO2: 95 Oxygen Delivery: Room Air - Progress Progress Note: 11/25/17 04:44 Catheter bulb was deflated and reinflated. Position checked. NS 60 ml placed in catheter. Return of only NS seen. No urine or blood clots seen. 11/25/17 05:08 Dr Trotter called and care discussed. Dr Trotter recommends placement of new 22 [place] catheter. 11/25/17 05:22 New catheter 22 [place] placed with good urine return. Pt comfortable. Counseled pt/family regarding: diagnosis, need for follow-up - Departure Time of Disposition: 05:23 Departure Disposition: Home Clinical Impression: Catheter (urine) change required Condition: Stable Critical Care Time: No Referrals: DOCTOR,NO FAMILY [Primary Care Provider] - Additional Instructions: Your catheter was restricted. We placed a new catheter. Continue with your care as described by your urologist. Follow-up with Dr. Trotter as scheduled.
[2017-11-25 05:32] VITALS: BP 176/71; O2SAT 98
== END 2017-11-25 05:41 | disposition home or self-care (01) ==
LOC: ED 03:53
DX: T83.038A Leakage of other urinary catheter, initial encounter (principal); Z98.890 Other specified postprocedural states; Z79.899 Other long term (current) drug therapy
CPT/HCPCS: 51702; 99283

== ENCOUNTER 2019-12-27 18:41 | Emergency (ER) | payer MEDICARE ==
--- NOTE | 2019-12-27 18:46 | ERPHSYRPT ---
- History of Present Illness Time Seen by Provider: 12/27/19 18:46 Source: patient Exam Limitations: clinical condition Physician History: This is an 84-year-old white male who underwent a prostate procedure in the last week or 2. He had his Singer catheter removed yesterday. Patient states that he has not urinated since his Singer catheter removal yesterday. He denies fever. He has suprapubic pressure. He does not think he is on any antibiotics. Timing/Duration: yesterday Activites at Onset: none Quality: pressure Onset Location: suprapubic Pain Radiation: none Severity of Pain-Max: mild Severity of Pain-Current: mild Associated Symptoms: abdominal pain (Mild suprapubic) Prior abdominal problems: other (Recent prostate procedure.) Allergies/Adverse Reactions: Sulfa (Sulfonamide Antibiotics) Allergy (Mild, Verified 12/27/19 18:45) Itching adhesive tape Allergy (Verified 12/27/19 18:45) Home Medications: Furosemide [Lasix] 60 mg PO DAILY 03/11/14 [History] Potassium Chloride 20 Meq [Klor-Con 20 MEQ] 20 meq PO BID 03/11/14 [History] Amlodipine Besylate/Benazepril [Amlodipine-Benazepril 10-40 mg] 1 each PO DAILY 03/11/16 [History] Metoprolol Tartrate 50 mg [Lopressor 50 MG] 50 mg PO BID 03/11/16 [History] Finasteride 5 mg [Proscar 5 MG] 5 mg PO DAILY 02/26/17 [History] Tamsulosin HCl 0.4 mg [Flomax 0.4 MG] 0.4 mg PO HS 02/26/17 [History] Hx Tetanus, Diphtheria Vaccination/Date Given: Yes Hx Influenza Vaccination/Date Given: No Hx Pneumococcal Vaccination/Date Given: No Travel Risk - International Travel Have you traveled outside of the country in past 3 weeks: No - Coronavirus Screening Are you exhibiting any of the following symptoms?: No Close contact with a COVID-19 positive Pt in past 14-21 Days: No - Past Medical History Pertinent Past Medical History: Yes Neurological History: No Pertinent History ENT History: No Pertinent History Cardiac History: Hypertension Respiratory History: No Pertinent History Endocrine Medical History: No Pertinent History Musculoskeletal History: No Pertinent History GI Medical History: No Pertinent History History: Other Psycho-Social History: No Pertinent History Male Reproductive Disorders: Prostate Problems - Past Surgical History Past Surgical History: Yes Neuro Surgical History: No Pertinent History Cardiac: No Pertinent History Respiratory: No Pertinent History Gastrointestinal: Hernia Repair Genitourinary: No Pertinent History Musculoskeletal: No Pertinent History Male Surgical History: Prostate Surgery Other Surgical History: steel removed from eye, left nipple gland removed, prostate resection - Social History Smoking Status: Former smoker Exposure to second hand smoke: No Drug Use: none Patient Lives Alone: No - Review of Systems Constitutional: No Symptoms Eyes: No Symptoms Ears, Nose, & Throat: No Symptoms Respiratory: No Symptoms Cardiac: No Symptoms Abdominal/Gastrointestinal: Abdominal Pain (Mild suprapubic pressure may) Genitourinary Symptoms: Urinary Retention Musculoskeletal: No Symptoms Skin: No Symptoms Neurological: No Symptoms Psychological: No Symptoms Endocrine: No Symptoms Hematologic/Lymphatic: No Symptoms Immunological/Allergic: No Symptoms All Other Systems: Reviewed and Negative - Nursing Vital Signs Nursing Vital Signs: Initial Vital Signs Pulse Rate 94 H 12/27/19 18:45 Respiratory Rate 18 12/27/19 18:45 O2 Sat by Pulse Oximetry 97 12/27/19 18:45 Pain Scale Pain Intensity 5 - Physical Exam General Appearance: no apparent distress, alert, anxiety Eye Exam: PERRL/EOMI, eyes nml inspection Ears, Nose, Throat Exam: normal ENT inspection, moist mucous membranes Neck Exam: normal inspection, non-tender, supple, full range of motion Respiratory Exam: normal breath sounds, lungs clear, airway intact, No chest tenderness, No respiratory distress Gastrointestinal/Abdomen Exam: No tenderness Rectal Exam: not done Back Exam: normal inspection, normal range of motion, No CVA tenderness, No vertebral tenderness Extremity Exam: normal inspection, normal range of motion, pelvis stable Neurologic Exam: alert, oriented x 3, cooperative, deaf teacher II-XII nml as tested, normal mood/affect, nml cerebellar function, nml station & gait, No sensation nml Skin Exam: normal color, warm, dry Lymphatic Exam: No adenopathy SpO2 Interpretation: normal O2 Delivery: Room Air - Course Nursing assessment & vital signs reviewed: Yes Ordered Tests: Active Orders 24 hr Category Date Time Status Catheter-[place] Singer STAT Care 12/27/19 19:09 Active CULTURE,URINE Stat Lab 12/27/19 19:45 Received UA W/RFX UR CULTURE Stat Lab 12/27/19 19:45 Completed Medication Summary Generic Name Dose Route Start Last Admin Trade Name Jeremias PRN Reason Stop Dose Admin Levofloxacin 500 mg 12/27/19 20:05 Levofloxacin 250mg Tablet PO 12/27/19 20:06 STAT ONE Discontinued Medications Generic Name Dose Route Start Last Admin Trade Name Jeremias PRN Reason Stop Dose Admin Lidocaine HCl Confirm 12/27/19 18:54 Xylocaine 2% Uro-Jet Administered 12/27/19 18:55 Dose 200 mg .ROUTE .STK-MED ONE Lab/Rad Data: Laboratory Results 12/27/19 Range/Units 19:45 Urine Color YELLOW (YELLOW) Urine Appearance SLIGHTLY CLOUDY (CLEAR) Urine pH 6.0 (5-6) Ur Specific [place] 1.009 (1.005-1.025) Urine Protein 100 (Negative) Urine Ketones NEGATIVE (NEGATIVE) Urine Blood LARGE (0-5) Ramírez/ul Urine Nitrite NEGATIVE (NEGATIVE) Urine Bilirubin NEGATIVE (NEGATIVE) Urine Urobilinogen NEGATIVE (0-1) mg/dL Ur Leukocyte Esterase SMALL (NEGATIVE) Urine WBC (Auto) 26-50 (0-5) /HPF Urine RBC (Auto) 51-100 (0-2) /HPF U Epithel Cells (Auto) NONE (FEW) /HPF Urine Bacteria (Auto) FEW (NEGATIVE) /HPF Urine Mucus (Auto) SLIGHT (NEGATIVE) /HPF Urine Culture Reflexed ORDERED SEPARATELY (NO) Urine Glucose NEGATIVE (NEGATIVE) mg/dL - Progress Progress: improved, re-examined Counseled pt/family regarding: lab results, diagnosis, need for follow-up, rad results - Departure Departure Disposition: Home Clinical Impression: Urinary retention, UTI (urinary tract infection) Condition: Stable Critical Care Time: No Referrals: ANEL VILLA MD [Primary Care Provider] - Additional Instructions: Drink plenty of fluids. Take your antibiotics as prescribed. Follow-up with your urologist on Monday, December 30, 2019 Prescriptions: Ciprofloxacin [Cipro 500 MG] 500 mg PO BID #14 tablet
[2019-12-27] MEDS ORDERED: XYLOCAINE 2% Uro-Jet ONE (18:54)
[2019-12-27 19:56] LABS: Appearance SLIGHTLY CLOUDY (CLEAR); Bacteria FEW /HPF (NEGATIVE); Bilirubin NEGATIVE (NEGATIVE); Blood LARGE Ery/ul (0-5); Glucose NEGATIVE (NEGATIVE); Ketones NEGATIVE (NEGATIVE); Leukocyte Esterase SMALL (NEGATIVE); Mucus SLIGHT /HPF (NEGATIVE); Nitrite NEGATIVE (NEGATIVE); Protein,Urine Dip 100 (Negative); RBC 51-100 /HPF (0-2); Specific Gravity 1.009 (1.005-1.025); Urobilinogen NEGATIVE mg/dL (0-1); WBC 26-50 /HPF (0-5)
[2019-12-27] MEDS ORDERED: Levofloxacin 250MG Tablet PO ONE (20:05)
[2019-12-27] MEDS ORDERED: Levofloxacin 500 MG Tablet ONE (20:08)
[2019-12-27] MEDS ORDERED: Levofloxacin 500 MG Tablet PO ONE (20:10)
[2019-12-27 20:22] VITALS: BP 107/88
[2019-12-27 20:29] VITALS: PULSE 63; O2SAT 96
== END 2019-12-27 20:30 | disposition home or self-care (01) ==
LOC: ED 18:41
DX: R33.9 Retention of urine, unspecified (principal); N39.0 Urinary tract infection, site not specified; Z98.890 Other specified postprocedural states; Z79.899 Other long term (current) drug therapy; I10 Essential (primary) hypertension
CPT/HCPCS: 51702; 81001; 87086; 99284; A9270-GY